=== PATIENT | male | born 2000 | race Caucasian/White ===

== ENCOUNTER → 2018-01-22 | Day surgery (SDC) | payer OTHER ==
[2018-01-13 10:25] VITALS: Ht 182.9 cm; Wt 81.8 kg
[~2018-01-22] VITALS: Ht 182.9 cm; Wt 81.8 kg
[~2018-01-22] MED LIST: CYCL10TA6 PO; DEXAMETHASONE SOD INJ 4 MG/ML VIAL ONE; FEXO1TAB49 PO; FLUT0.15 NAE; IBUP-1050 PO; LIDOCAINE HCL 1% MPF 5 ML VIAL ONE; MONT1TAB3 PO; NAPR-22 PO
--- NOTE | 2018-01-22 07:08 | History & Physical Bridge - [place] ---
H&P Re-Evaluation Bridge Note: I have examined the patient, reviewed the History & Physical and in the interval since the performance of the History & Physical I have noted the following changes of clinical significance: No changes noted
--- NOTE | 2018-01-22 07:28 | Discharge Instructions-SurgCtr ---
Discharge Instructions Date of Service Jan 22, 2018. Visit Reason for Visit: Lumbosacral Radiculopathy Discharge Discharge Diagnosis / Problem: same Discharge Goals Goal(s): Improve function Activity Recommendations Activity Limitations: as noted below Lifting Limitations: no more than 5 pounds Exercise/Sports Limitations: until after follow-up appointment Driving or Machine Use: no limitations no lifting or bending Anesthesia . Post Anesthesia Instructions: If you have had General Anesthesia or IV Sedation: * Do not drive today. * Resume driving when surgeon permits. * Do not make important decisions or sign legal documents today. * Call surgeon for: 1. Temperature elevations greater than 101 degrees F. 2. Uncontrollable pain. 3. Excessive bleeding. 4. Persistent nausea and vomiting. 5. Medication intolerance (nausea, vomiting or rash). * For nausea and vomiting use only clear liquids such as: tea, soda, bouillon until nausea subsides, then gradually increase diet as tolerated. * If you have any concerns or questions, call your surgeon's office. If physician is unavailable and it is an emergency, call 911 or go to the nearest emergency room. . Diet Recommendations Home Diet: no limitations Procedures Procedures Performed: Epidural Srteroid Injection L2-L3 Pending Studies Studies pending at discharge: no Medical Emergencies . Who to Call and When: Medical Emergencies: If at any time you feel your situation is an emergency, please call 911 immediately. . Non-Emergent Contact Non-Emergency issues call your: Primary Care Provider . . "Provider Documentation" section prepared by Guillaume Torres. .
--- NOTE | 2018-01-22 07:29 | [facility] Post Operative Brief Note ---
Immediate Operative Summary Operative Date Jan 22, 2018. Pre-Operative Diagnosis LUMBOSACRAL RADICULOPATHY Post-Operative Diagnosis SAME PREOP Procedure(s) Performed Epidural Srteroid Injection L2-L3 Surgeon DR. Janis SEYMOUR Electrodynamicist Surgeon(s) NONE Estimated Blood Loss 0 ML Findings Consistent with Post-Op Diagnosis Specimens NONE Anesthesia Type Local
[2018-01-22 07:33] VITALS: TEMP 36.8
[2018-01-22 07:48] VITALS: BP 123/76; PULSE 55; O2SAT 99
--- NOTE | 2018-01-22 08:10 | OPERATIVE REPORT ---
DATE OF OPERATION: 01/22/2018 PREOPERATIVE DIAGNOSIS: Spinal stenosis, lumbar. POSTOPERATIVE DIAGNOSIS: Same. PROCEDURE: Epidural steroid L2-3 lumbar. SURGEON: Dr. Torres. DESCRIPTION OF PROCEDURE: The patient was taken to the operating room here at [facility] in the small OR area. Prepped and draped sterile. I advanced the 22 gauge Tuohy needle to the epidural area at L2-3. Injection of dexamethasone provided with air acceptance and volume acceptance technique. The patient was discharged home in improved stable condition. I attest to the content of the Intraoperative Record and any orders documented therein. Any exception s are noted below.
== END | disposition home or self-care (01) ==
LOC: X.SURG 06:19
PROVIDERS: ATTEND Orthopaedic Surgery Orthopaedic Surgery of the Spine
DX: M48.061 Spinal stenosis, lumbar region without neurogenic claudication (principal); M54.17 Radiculopathy, lumbosacral region